=== PATIENT | female | born 1950 | race Caucasian/White ===

== ENCOUNTER 2019-10-31 06:45 | Observation (INO) | payer OTHER ==
[~2019-10-31] VITALS: Ht 177.8 cm; Wt 120.0 kg
[2019-10-31] VITALS (11 sets, daily range): BP systolic 138–177; BP diastolic 69–117
[2019-10-31] MEDS ORDERED: NORVASC10 MG PO (07:22)
[2019-10-31] MEDS ORDERED: DORYX MPC120 MG PO (07:22)
[2019-10-31] MEDS ORDERED: GEMFIBROZIL 60600 MG PO (07:23)
[2019-10-31] MEDS ORDERED: PRINIVIL20 M1 PO (07:24)
[2019-10-31] MEDS ORDERED: ISOSORBIDE MONO30 M1 PO (07:24)
[2019-10-31] MEDS ORDERED: MAGNESIUM250 M1 PO (07:25)
[2019-10-31] MEDS ORDERED: MELOXICAM15 MG PO (07:25)
[2019-10-31] MEDS ORDERED: GLUCOPHAGE1000 MG PO (07:25)
[2019-10-31] MEDS ORDERED: SUPER THERAVIT1 EACH PO (07:26)
[2019-10-31] MEDS ORDERED: TOPROL XL100 MG PO (07:26)
[2019-10-31] MEDS ORDERED: OMEPRAZOLE40 MG PO (07:26)
[2019-10-31] MEDS ORDERED: KLOR-CON 1010 MEQ PO (07:27)
[2019-10-31] MEDS ORDERED: EZALLOR SPRINKL20 MG PO (07:28)
[2019-10-31] MEDS ORDERED: REMERON15 M2 PO (07:28)
[2019-10-31] MEDS ORDERED: TOPAMAX 25 MG T25 M1 PO (07:29)
[2019-10-31] MEDS ORDERED: TRICOR145 MG PO (07:29)
[2019-10-31 07:43] LABS: HEMOGLOBIN 14.1 gm/dL (12.0-15.0); MCH 29.4 pg (26.0-34.0); MCHC 32.9 g/dL (28.0-37.0); MCV 89.3 fL (80.0-100.0); RBC 4.81 mil/uL (4.20-5.00); RDW 12.8 % (10.5-14.5); WBC 4.8 thou/uL (4.0-11.0)
[2019-10-31 07:56] LABS: CALCIUM 9.6 mg/dL (8.5-10.1); POTASSIUM 4.3 mmol/L (3.5-5.1)
[2019-11-01 00:15] VITALS: BP 124/56
[2019-11-01 03:27] VITALS: BP 140/70
[2019-11-01 05:19] LABS: HEMATOCRIT 40.3 % (37.0-47.0); HEMOGLOBIN 13.2 gm/dL (12.0-15.0); MCH 29.2 pg (26.0-34.0); MCHC 32.7 g/dL (28.0-37.0); MCV 89.3 fL (80.0-100.0); RBC 4.51 mil/uL (4.20-5.00); RDW 12.9 % (10.5-14.5); WBC 4.5 thou/uL (4.0-11.0)
[2019-11-01 05:43] LABS: ALBUMIN 3.4 g/dL (3.4-5.0); ANION GAP 12 mmol/L (7-16); BUN 18 mg/dL (7-18); CALCIUM 9.2 mg/dL (8.5-10.1); CHLORIDE 101 mmol/L (98-107); CHOLESTEROL 168 mg/dL (<200); CO2 25 mmol/L (21-32); CREATININE 0.9 mg/dL (0.6-1.0); GLUCOSE 168 mg/dL (74-106); HDL CHOLESTEROL 30 mg/dL (>40); LDL CHOLESTEROL 71 mg/dL (<100); POTASSIUM 4.1 mmol/L (3.5-5.1); SERUM ASSESSMENT Clear; SGOT 30 U/L (15-37); SGPT 46 U/L (30-65); SODIUM 138 mmol/L (136-145); TC:HDL 5.6 Ratio (Not establshd); TOTAL BILIRUBIN 0.5 mg/dL (<0.1-1.0); TOTAL PROTEIN 6.4 g/dL (6.4-8.2); TRIGLYCERIDE 336 mg/dL (<150); TROPONIN-I 0.13 ng/mL (<0.06); VLDL 67 mg/dL (<40)
[2019-11-01 07:00] VITALS: BP 138/72
[2019-11-01] MEDS ORDERED: CRESTOR40 MG PO (07:41)
[2019-11-01] MEDS ORDERED: ASPIRIN325 PO (07:41)
[2019-11-01] MEDS ORDERED: EFFIENT10 MG PO (07:41)
[2019-11-01] MEDS ORDERED: GLUCOPHAGE1000 MG PO (07:41)
--- NOTE | 2019-11-01 08:21 | EKG ---
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
--- NOTE | 2019-11-01 08:47 | EKG ---
[place] [address] 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
[2019-11-01 09:08] VITALS: BP 140/70
--- NOTE | 2019-11-01 18:52 | CATHLAB ---
[facility] [place] [address] INVASIVE PROCEDURE REPORT Name: JAYMIE WOODRUFFSHARA Lennon Room #: 210-[facility] [place] .R#: [id number] Admission: 10/31/19 Attend Phys: Lino Triana, Discharge: 11/01/19 Date of : 48 Report #: [id number] THIS REPORT FOR: //name// APPROVED REPORT Study performed: 10/31/2019 07:46:36 Patient Details Patient Status: Out-Patient Room #: The patient is a 69 year-old female Event Personnel Lino Triana Aerial Gunner, Abigail Cuellar RN RN, Kalee Montes RTR Scrub, France Pelletier RTR, KEITH Scrub, Luz Gomes Monitor, Robe Chanel RTR Monitor Procedures Performed Art Access - R femoral artery* Left Heart Cath w/or w/o Coronaries [id number] [facility] [place] [address] w/wo Plasty Single LAD 874851 [place] Place w/wo Plasty Single OM 044861 , Left VentriculogramHemostasis w/ Mynx Abdominal Aortography 954488 59888 Initial Mod Sed Same Phys/QHP Gr5y 925713 72432 Mod Sed Same Phys/QHP Ea 715891 Indication Chest pain Procedure Narrative The patient was brought electively to the Cardiac Catheterization Laboratory and was prepped and draped in a sterile manner. The Right Groin^ was infiltrated with 1% Lidocaine subcutaneous anesthesia. A PINNACLE 6FR Sheath #[id number] sheath was inserted into the RFA^. Coronary angiography was performed using coronary diagnostic catheters. The right coronary system was accessed and visualized with a JR4 catheter. The left coronary system was accessed and visualized with a JL4 catheter. The left ventricle was accessed and visualized with a PIGTAIL catheter. Left ventriculogram was performed in 30 degree projection. An aortogram of the abdominal aorta was performed. The patient tolerated the procedure well and there were no complications associated with the procedure. There was no hematoma. Intraoperative Conscious Sedation Sedation start time: 8:46 Case end Time: 10:11 Fentanyl 100 mcg Versed 2.[address] [address] INVASIVE PROCEDURE REPORT Name: BREANNA WOODRUFF Room #: 210-[facility] [place] .R#: [id number] Admission: 10/31/19 Attend Phys: Lino Triana, Discharge: 11/01/19 Date of : 48 Report #: [id number] Fluoro Time: 16.07 minutes Dose: DAP 99105.80 cGycm2 2848 mGy Contrast Type and Amount: Visipaque 240 ml Hemodynamics The aortic pressure is 152/66 mmHg with a mean of 70 mmHg. The left ventricular pressure is 158/17 mmHg with a mean of mmHg. The left ventricular end diastolic pressure is 35 mmHg. PCI Technique Lesion Percutaneous coronary intervention was performed on the mid right coronary artery. A LAUNCHER 6FR EBU 3.5 #[id number] Guide Catheter was used to engage the LAD ostium. A Luge Wire .014 x 182CM #[id number] Interventional Guidewire was used to cross the lesion. BALLOON DILATION A Balloon catheter Sprinter OTW 2.25 x 12 #[id number] was inserted and inflated up to 8.00atm for 7seconds. Additional Inflation: 8.00atm for 13seconds. STENT DEPLOYMENT A stent RESOLUTE RANJANA OTW 2.5 X 12 #[id number] was inserted and inflated up to 14.00atm for 31seconds. PCI Technique Lesion 2 A LAUNCHER 6FR EBU 3.5 #[id number] Guide Catheter was used to engage the OM ostium. A Luge Wire .014 x 182CM #[id number] Interventional Guidewire was used to cross the lesion. Balloon Dilation A Balloon catheter Sprinter OTW 2.5 x 12 #[id number] was inserted and inflated up to 16atm for 13seconds. Additional Inflation: 14atm for 17seconds. Stent Deployment A stent XIENCE JUAN RX 2.5 X 12 #[id number] was inserted and inflated up to 16atm for 17seconds. Conclusion #1 successful PTCA stent of the proximal subtotaled LAD lesion placement of a 2.5 x 12 resolute drug-eluting stent ORIANA grade 3 flow marketed improvement and LAD as it extends around the apex. 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 There is extensive collateralization of the PDA GERALD. She is marketed improvement in the left side system and collateral flow after stent placement in LAD and circumflex as described above. 5 left ventricle inferior apical anterior apical hypokinesis ejection fraction of 40-45% range. #6 abdominal aortogram intact no cystic and aneurysm mild plaquing. Single bilateral renal arteries are patent. Echo indications and plan: Continue aggressive risk factor modification. 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 Hemodynamically stable. Transfer to CCU in stable condition. Dual antiplatelet therapy to continue indefinitely. <ELECTRONICALLY SIGNED> By: Lino Triana MD, FACC 11/01/191850 50 50 Lino Triana MD, FACC /INF
== END 2019-11-01 10:05 | disposition home or self-care (01) ==
LOC: CATH 06:45 → 2N 11:29 → ENTRNSPT 11-01 09:58 → EDTRNSPTSTS 11-01 10:00 → 2N 11-01 10:05
PROVIDERS: ADMIT Internal Medicine Cardiovascular Disease
DX: I25.10 Atherosclerotic heart disease of native coronary artery without angina pectoris (principal); I10 Essential (primary) hypertension; E78.5 Hyperlipidemia, unspecified; E11.9 Type 2 diabetes mellitus without complications